=== PATIENT | female | born 1980 | race Caucasian/White ===

== ENCOUNTER 2021-06-01 15:14 | Emergency (ER) | payer SELFPAY ==
--- NOTE | 2021-06-01 15:17 | EDM.PDOC ---
ED HPI GENERAL MEDICAL PROBLEM - General Chief Complaint: Headache Stated Complaint: HEADACHE,SEVERE HEAD PAIN Time Seen by Provider: 06/01/21 15:16 Source of Information: Reports: Patient History Limitations: Reports: No Limitations - History of Present Illness INITIAL COMMENTS - FREE TEXT/NARRATIVE: HISTORY AND PHYSICAL: History of present illness: Patient is a 40-year-old female who presents to the emergency room with complaints of increased anxiety. She states for the past 1 month she has dealt with anxiety on a daily basis stating that her scalp will have a tingling s ensation, feelings of palpitations, "fight or flight feeling" and dizziness. She states she started having symptoms while she was in [place], and has been seen by several providers who "tell me I am okay and it is just my anxiety". She has had a head CT and MRI which are normal. She states she was given Atarax 3 times daily as needed, she states she will take a half tab but does not seem to alleviate her discomfort. Approximately a month ago she was given a prescription for Xanax, she states this does help with her symptoms immensely but has ran out of this medication. She is concerned that her withdrawal from alcohol could be related to the symptoms. She is a daily drinker, drinks about 4-6 beers daily, but states her symptoms do not feel improved whether she is drinking or not. She is not displaying any withdrawal symptoms. Patient states she does feel like she has a sinus infection as well as she has a lot of fullness in her frontal scalp and pain when she bends her head down. Patient denies any fever, chills, change in vision, syncope or near syncope. Denies any chest pain, back pain, shortness of breath or cough. Denies any abdominal pain, nausea, vomiting, diarrhea, constipation or dysuria. Has not noted any blood in urine or stool. Patient has been eating and drinking appropriately. Review of systems: As per history of present illness and below otherwise all systems reviewed and negative. Past medical history: As per history of present illness and as reviewed below otherwise noncontributory. Surgical history: As per history of present illness and as reviewed below otherwise noncontributory. Social history: See social history for further information Family history: As per history of present illness and as reviewed below otherwise noncontributory. Physical exam: General: Well developed and well nourished. Alert and orientated x 3. Nontoxic in appearance and in no acute distress. Vital signs are stable and have been reviewed by me. Nursing notes were reviewed. HEENT: Atraumatic, normocephalic, pupils equal and reactive bilaterally, negative for conjunctival pallor or scleral icterus, mucous membranes moist, bilateral maxillary and frontal sinus pressure to palpation, TMs normal bilaterally, throat clear, neck supple, nontender, trachea midline. No drooling or trismus noted. No meningeal signs. No hot potato voice noted. Lungs: Clear to auscultation bilaterally. No wheezes, rales, or rhonchi. Chest nontender. Normal work of breathing, no accessory muscles used. Heart: S1S2, regular rate and rhythm without overt murmur, gallops, or rubs. No JVD. No peripheral edema Abdomen: Soft, nondistended, nontender. Normoactive bowel sounds. Negative for masses or costovertebral tenderness. C-spine/Back: No pinpoint vertebral tenderness upon palpation. No crepitus, step-offs or obvious deformities. Patient is ambulatory into the emergency room without difficulty or deficit. Able to rock back on heels and walk on toes. Denies any urinary or fecal incontinence. Denies any numbness, tingling or saddle paresthesia. No concerns of serious infection, fracture or cord compression, or cauda equina syndrome. Deep tendon reflexes brisk bilaterally. Skin: Intact, warm, dry. No lesions or rashes noted. Hematologic: No petechiae or purpra. Mucosa appropriate color and normal nail bed color and refill. Extremities: Atraumatic, moves all extremities per self without difficulty or deficits, negative for cords or calf pain. Neurovascular unremarkable. Neuro: Awake, alert, oriented. Cranial nerves II through XII unremarkable. Cerebellum unremarkable. Motor and sensory unremarkable throughout. Exam nonfocal. Psychiatric: Mood and affect are appropriate. Normal thought process. Answering questions appropriately. Notes: *This patient was seen and evaluated during the 2019 SARS-CoV-2 novel coronavirus pandemic period. Community viral transmission is ongoing at time of this encounter and the emergency department is operating under pandemic response procedures. Patient is a 40-year-old female who presents to the emergency room with complaints of anxiety. She states over the past 1 month she has seen several doctors for her symptom of scalp tingling, heart palpitations, and feeling dizzy. She states she has had complete lab work-up, multiple EKGs, head CT, head MRI and has been informed everything has been normal. She has tried multiple prescription medications for anxiety/depression, was told these would take a while to "kick in" and she has not found anything that helps. Most recently she was given a 15 tablet supply of Xanax and Atarax. She states the Xanax did help a lot although she has ran out of this. Her physical exam is unremarkable with the exception of sinusitis. I see no cause for the tingling sensation to the scalp as there is no lesions, facial weakness or droop. This is likely due to her anxiety. She states she has had multiple imaging to her head and declines it at this time stating that today is no different or worse than her previous visits in [place]. Patient's lab work is unremarkable. Vital signs are stable. She does have some relief with the medications given while here. I have talked with the patient about today's findings, in addition to providing specific details for plan of care. Reassessment at the time of disposition demonstrates that the patient is in no acute distress. Due to the longevity of symptoms I would like her to follow-up with neurology, referral has been made. I do feel this is anxiety related, I will give her some Xanax with the intention she follows up with primary care for reevaluation and further management. The patient is stable for discharge, counseling was provided and we discussed in great detail signs and symptoms that would prompt them to return to the Emergency Department. Medication, follow up and supportive care measures were reviewed and discussed. Voices understanding and is agreeable to plan of care. Denies any further quest ions or concerns at this time. Diagnostics: CBC, CMP Therapeutics: IV fluid, Toradol, Ativan Prescription: Augmentin, Xanax Impression: Anxiety Sinus headache secondary to sinusitis Plan: 1. You were evaluated today on an emergent basis. Your exam demonstrates a sinus infection, please take the antibiotic as prescribed. I have given you a limited amount of Xanax as you stated this did help previously. Further refills cannot be done through the emergency room, you will need to establish care with a primary care provider if you are going to be living in the area. I also would like you to see neurology, a referral has been given for Dr. Hernandez. 2. You can alternate Tylenol and ibuprofen as needed for pain and fever management. 3. We encourage you to follow up with your primary care provider and/or recommended specialist in the next few days for re-evaluation and further care/management. 4. If your symptoms should worsen, new symptoms develop or any of the signs and symptoms we discussed should arise please return to the emergency room or call 911 (if needed). Definitive disposition and diagnosis as appropriate pending reevaluation and review of above. - Related Data Allergies Allergy/AdvReac Type Severity Reaction Status Date / Time ciprofloxacin Allergy Dizziness Verified 06/01/21 16:02 flaxseed Allergy Swelling Verified 06/01/21 16:02 Home Meds: Home Meds ALPRAZolam [Xanax] 0.5 mg PO BID PRN #15 tablet 06/01/21 [Rx] Amoxicillin/Clavulanate K [Augmentin 875-125 MG] 1 tab PO BID 10 Days #20 tablet 06/01/21 [Rx] Cetirizine [ZyrTEC] 10 mg PO DAILY 06/01/21 [History] hydrOXYzine HCL [Atarax] 25 mg PO TID PRN 06/01/21 [History] ED ROS GENERAL - Review of Systems Review Of Systems: Comprehensive ROS is negative, except as noted in HPI. - Physical Exam Exam: See Below (See dictation) Course - Vital Signs Last Recorded V/S: Last Vital Signs Temp 97.5 F 06/01/21 15:55 Pulse 82 06/01/21 15:55 Resp 20 06/01/21 15:55 BP 111/77 06/01/21 15:55 Pulse Ox 99 06/01/21 15:55 - Orders/Labs/Meds Orders: Active Orders 24 hr Category Date Time Status Sodium Chloride 0.9% [Normal Saline] 1,000 ml Med 06/01/21 16:01 Active IV STAT Medication Orders Sodium Chloride (Normal Saline) 1,000 mls @ 999 mls/hr IV STAT ONE Stop: 06/01/21 17:01 Last Admin: 06/01/21 16:17 Dose: 999 mls/hr Documented by: [id number] Labs: Laboratory Tests 06/01/21 06/01/21 Range/Units 16:21 16:21 WBC 6.81 (4.0-11.0) K/uL RBC 4.19 L (4.30-5.90) M/uL Hgb 13.3 (12.0-16.0) g/dL Hct 39.3 (36.0-46.0) % MCV 93.8 (80.0-98.0) fL MCH 31.7 (27.0-32.0) pg MCHC 33.8 (31.0-37.0) g/dL RDW Std Deviation 45.7 (28.0-62.0) fl RDW Coeff of Christine 13 (11.0-15.0) % Plt Count 203 (150-400) K/uL MPV 10.20 (7.40-12.00) fL Neut % (Auto) 58.2 (48.0-80.0) % Lymph % (Auto) 31.0 (16.0-40.0) % Perry % (Auto) 7.8 (0.0-15.0) % Eos % (Auto) 2.1 (0.0-7.0) % Baso % (Auto) 0.9 (0.0-1.5) % Neut # (Auto) 4.0 (1.4-5.7) K/uL Lymph # (Auto) 2.1 (0.6-2.4) K/uL Perry # (Auto) 0.5 (0.0-0.8) K/uL Eos # (Auto) 0.1 (0.0-0.7) K/uL Baso # (Auto) 0.1 (0.0-0.1) K/uL Nucleated RBC % 0.0 /100WBC Nucleated RBCs # 0 K/uL Sodium 139 (136-145) mmol/L Potassium 4.2 (3.5-5.1) mmol/L Chloride 104 (98-107) mmol/L Carbon Dioxide 24.5 (21.0-32.0) mmol/L BUN 10 (7.0-18.0) mg/dL Creatinine 0.7 (0.6-1.0) mg/dL Est Cr Clr Drug Dosing 94.10 mL/min Estimated GFR (MDRD) > 60.0 ml/min Glucose 97 (74-106) mg/dL Calcium 8.6 (8.5-10.1) mg/dL Total Bilirubin 0.4 (0.2-1.0) mg/dL AST 20 (15-37) IU/L ALT 31 (14-63) IU/L Alkaline Phosphatase 36 L (46-116) U/L Total Protein 7.5 (6.4-8.2) g/dL Albumin 3.9 (3.4-5.0) g/dL Globulin 3.6 (2.6-4.0) g/dL Albumin/Globulin Ratio 1.1 (0.9-1.6) Meds: Medications Generic Name Dose Route Start Last Admin Trade Name Freq PRN Reason Stop Dose Admin Sodium Chloride 1,000 mls @ 999 mls/hr 06/01/21 16:01 06/01/21 16:17 Normal Saline IV 06/01/21 17:01 999 mls/hr STAT ONE Administration Discontinued Medications Generic Name Dose Route Start Last Admin Trade Name Freq PRN Reason Stop Dose Admin Ketorolac Tromethamine 30 mg 06/01/21 16:01 06/01/21 16:16 Ketorolac 30 Mg/Ml Sdv IVPUSH 06/01/21 16:02 30 mg ONETIME ONE Administration Lorazepam 1 mg 06/01/21 16:01 06/01/21 16:17 Lorazepam 2 Mg/Ml Sdv IVPUSH 06/01/21 16:02 1 mg ONETIME ONE Administration Ondansetron HCl 4 mg 06/01/21 16:01 06/01/21 16:16 Ondansetron 4 Mg/2 Ml Sdv IVPUSH 06/01/21 16:02 4 mg ONETIME ONE Administration Departure - Departure Time of Disposition: 17:00 Disposition: Home, Self-Care 01 Clinical Impression: Anxiety, Sinus headache Sinusitis Qualifiers: Sinusitis location: frontal Chronicity: acute Recurrence: non-recurrent Qualified Code(s): J01.10 - Acute frontal sinusitis, unspecified - Discharge Information Prescriptions: Amoxicillin/Clavulanate K [Augmentin 875-125 MG] 1 tab PO BID 10 Days #20 tablet ALPRAZolam [Xanax] 0.5 mg PO BID PRN #15 tablet PRN Reason: Anxiety Instructions: Migraine Headache, [id number] Referrals: PCP,None [Primary Care Provider] - Forms: ED Department Discharge Additional Instructions: The following information is given to patients seen in the emergency department who are being discharged to home. This information is to outline your options for follow-up care. We provide all patients seen in our emergency department with a follow-up referral. The need for follow-up, as well as the timing and circumstances, are variable depending upon the specifics of your emergency department visit. If you don't have a primary care physician on staff, we will provide you with a referral. We always advise you to contact your personal physician following an emergency department visit to inform them of the circumstance of the visit and for follow-up with them and/or the need for any referrals to a consulting specialist. The emergency department will also refer you to a specialist when appropriate. This referral assures that you have the opportunity for follow-up care with a specialist. All of these measure are taken in an effort to provide you with optimal care, which includes your follow-up. Under all circumstances we always encourage you to contact your private physician who remains a resource for coordinating your care. When calling for follow-up care, please make the office aware that this follow-up is from your recent emergency room visit. If for any reason you are refused follow-up, please contact the [facility] Emergency Department at and asked to speak to the emergency department charge nurse. [facility] [address] [place] [id number] [place] [address] Thank you for choosing the [facility] emergency department in [place] for your medical needs today. It was a pleasure caring for you. Today you were seen in the emergency department for anxiety. 1. You were evaluated today on an emergent basis. Your exam demonstrates a sinus infection, please take the antibiotic as prescribed. I have given you a limited amount of Xanax as you stated this did help previously. Further refills cannot be done through the emergency room, you will need to establish care with a primary care provider if you are going to be living in the area. I also would like you to see neurology, a referral has been given for Dr. Hernandez. 2. You can alternate Tylenol and ibuprofen as needed for pain and fever management. 3. We encourage you to follow up with your primary care provider and/or recommended specialist in the next few days for re-evaluation and further care/management. 4. If your symptoms should worsen, new symptoms develop or any of the signs and symptoms we discussed should arise please return to the emergency room or call 911 (if needed). Sepsis Event Note (ED) - Focused Exam Vital Signs: Vital Signs Temp Pulse Resp BP Pulse Ox 06/01/21 15:55 97.5 F 82 20 111/77 99 - My Orders Last 24 Hours: My Active Orders 06/01/21 16:01 Sodium Chloride 0.9% [Normal Saline] 1,000 ml IV STAT - Assessment/Plan Last 24 Hours: My Active Orders 06/01/21 16:01 Sodium Chloride 0.9% [Normal Saline] 1,000 ml IV STAT
[2021-06-01] MEDS ORDERED: LORazepam 2 MG/ML SDV IVPUSH ONE (16:01)
[2021-06-01] MEDS ORDERED: Ondansetron 4 MG/2 ML SDV IVPUSH ONE (16:01)
[2021-06-01] MEDS ORDERED: Sodium Chloride 0.9% 1,000 ML IV ONE (16:01)
[2021-06-01] MEDS ORDERED: Ketorolac 30 MG/ML SDV IVPUSH ONE (16:01)
[2021-06-01 16:57] LABS: BLOOD UREA NITROGEN,BUN 10 mg/dL (7.0-18.0); CARBON DIOXIDE,CO2 24.5 mmol/L (21.0-32.0); CHLORIDE,CL 104 mmol/L (98-107); GLUCOSE RANDOM 97 mg/dL (74-106); POTASSIUM,K 4.2 mmol/L (3.5-5.1); SODIUM,NA 139 mmol/L (136-145)
== END 2021-06-01 17:13 | disposition home or self-care (01) ==
LOC: MW.ED 15:14
DX: F41.9 Anxiety disorder, unspecified (principal); J01.10 Acute frontal sinusitis, unspecified; Z88.1 Allergy status to other antibiotic agents; Z91.018 Allergy to other foods
CPT/HCPCS: 36415; 80053; 85025; 96374; 96375; 99284; J1885; J2060; J2405; J7030

== ENCOUNTER 2021-07-22 20:16 | Emergency (ER) | payer MEDICAID ==
[2021-07-22] MEDS ORDERED: Metoclopramide 10 MG/2 ML SDV IM ONE (20:53)
[2021-07-22] MEDS ORDERED: Ketorolac 60 MG/2 ML SDV IM ONE (20:53)
--- NOTE | 2021-07-22 20:54 | EDM.PDOC ---
ED HPI GENERAL MEDICAL PROBLEM - General Chief Complaint: Headache Stated Complaint: ONGOING HEADACHE, TOP OF HEAD NUMB, UNSTEADY Time Seen by Provider: 07/22/21 20:26 Source of Information: Reports: Patient History Limitations: Reports: No Limitations - History of Present Illness INITIAL COMMENTS - FREE TEXT/NARRATIVE: HISTORY AND PHYSICAL: History of present illness: The patient is a 40-year-old female who presents to the emergency department with complaints of sinus pressure, anterior scalp numbness. The patient states that she has been having sinus issues, that involve balance, feelings of floating, shakiness inside, for over 5 weeks. The patient has had a head CT and MRI both of which were negative. The patient has no photophobia or phonophobia. The patient was seen in this ER on 06/01/2020 for similar complaints. At that time the patient was diagnosed with anxiety and sinus headache secondary to sinusitis. The patient was prescribed and antibiotics and a refill of her Xanax. The patient was seen at [facility] last week for the same symptoms and was prescribed amoxicillin and another dose of Xanax. The patient states that she does not feel Xanax is helping and not she feels like this is more of a migraine type headache. Patient denies any fever, chills, headache, change in vision, syncope or near syncope. Denies any chest pain, back pain, shortness of breath or cough. Denies any abdominal pain, nausea, vomiting, diarrhea, constipation or dysuria. Has not noted any blood in urine or stool. Patient has been eating and drinking appropriately. Review of systems: As per history of present illness and below otherwise all systems reviewed and negative. Past medical history: As per history of present illness and as reviewed below otherwise noncontributory. Surgical history: As per history of present illness and as reviewed below otherwise noncontributory. Social history: See social history for further information Family history: As per history of present illness and as reviewed below otherwise noncontributory. Physical exam: General: Well developed and well nourished. Alert and orientated x 3. Nontoxic in appearance and in no acute distress. Vital signs are stable and have been reviewed by me. Nursing notes were reviewed. HEENT: Atraumatic, normocephalic, pupils equal and reactive bilaterally, negative for conjunctival pallor or scleral icterus, mucous membranes moist, TMs normal bilaterally, throat clear, neck supple, nontender, trachea midline. No drooling or trismus noted. No meningeal signs. No hot potato voice noted. Lungs: Clear to auscultation bilaterally. No wheezes, rales, or rhonchi. Chest nontender. Normal work of breathing, no accessory muscles used. Heart: S1S2, regular rate and rhythm without overt murmur, gallops, or rubs. No JVD. No peripheral edema Abdomen: Soft, nondistended, nontender. Normoactive bowel sounds. Negative for masses or costovertebral tenderness. Skin: Intact, warm, dry. No lesions or rashes noted. Hematologic: No petechiae or purpra. Mucosa appropriate color and normal nail bed color and refill. Extremities: Atraumatic, moves all extremities per self without difficulty or deficits, negative for cords or calf pain. Neurovascular unremarkable. Neuro: Awake, alert, oriented. Cranial nerves II through XII unremarkable. Cerebellum unremarkable. Motor and sensory unremarkable throughout. Exam nonfocal. Psychiatric: Mood and affect are appropriate. Normal thought process. Answering questions appropriately. Notes: *This patient was seen and evaluated during the 2019 SARS-CoV-2 novel coronavirus pandemic period. Community viral transmission is ongoing at time of this encounter and the emergency department is operating under pandemic response procedures. As stated above the patient is a 40-year-old female who presents to the emergency department with complaints of scalp numbness, balance issues, sinus pressure and shakiness inside. The patient states that she was told she needed to see a neurologist but has not followed up with one. Patient neuro exam was negative for any deficits. There is no facial drooping or slurred speech noticed. Her gait is steady. Upon talking to the patient about her anxiety the patient states that she is just taking the Xanax as needed and does not think that she needs a daily medication. The patient declined head CT or any work-up. I will treat the patient for a migraine with Toradol and Reglan. Patient is unable to receive Benadryl as she is driving. The patient is agreeable with this plan. The patient states that she had some relief from the Toradol and Reglan and wishes to go home. We discussed in detail the need to follow-up with a neurologist and I did place her on a neurologist follow-up appointment with list. I gave the patient a detailed list of symptoms to return to the emergency department. She verbalized understanding. I have talked with the patient about today's findings, in addition to providing specific details for plan of care. Reassessment at the time of disposition demonstrates that the patient is in no acute distress. The patient is stable for discharge, counseling was provided and we discussed in great detail signs and symptoms that would prompt them to return to the Emergency Department. Medication, follow up and supportive care measures were reviewed and discussed. Voices understanding and is agreeable to plan of care. Denies any further questions or concerns at this time Therapeutics: Toradol 60 mg IM Reglan 10 mg IM Impression: Migraine Plan: 1. You were evaluated today on an emergent basis. Your complaints of scalp numbness, balance issues and sinus pressure was evaluated with an examination. You declined any head CT or blood work-up. You were given Toradol 60 mg and Reglan 10 mg IM. You were offered IV fluids and declined. I have put your name on the neurologist follow-up list, so you should receive a phone call for a follow-up appointment. If you have any symptoms such as slurred speech or facial drooping please return to the emergency department as this could be a serious sign. 2. You can alternate Tylenol and ibuprofen as needed for pain and fever management. 3. We encourage you to follow up with your primary care provider and/or recommended specialist in the next few days for re-evaluation and further care/management. 4. If your symptoms should worsen, new symptoms develop or any of the signs and symptoms we discussed should arise please return to the emergency room or call 911 (if needed). Definitive disposition and diagnosis as appropriate pending reevaluation and review of above. headache Pain Score (Numeric/FACES): 5 - Related Data Allergies Allergy/AdvReac Type Severity Reaction Status Date / Time ciprofloxacin Allergy Dizziness Verified 06/01/21 16:02 flaxseed Allergy Swelling Verified 06/01/21 16:02 Home Meds: Home Meds ALPRAZolam [Xanax] 0.5 mg PO BID PRN #15 tablet 06/01/21 [Rx] Cetirizine [ZyrTEC] 10 mg PO DAILY 06/01/21 [History] hydrOXYzine HCL [Atarax] 25 mg PO TID PRN 06/01/21 [History] Past Medical History HEENT History: Reports: Allergic Rhinitis Cardiovascular History: Reports: None Respiratory History: Reports: None Gastrointestinal History: Reports: None Genitourinary History: Reports: None DTP OPERATOR History: Reports: None Musculoskeletal History: Reports: None Neurological History: Reports: None Psychiatric History: Reports: Addiction, Anxiety, Depression Endocrine/Metabolic History: Reports: None Hematologic History: Reports: None Immunologic History: Reports: None Oncologic (Cancer) History: Reports: None Dermatologic History: Reports: None - Infectious Disease History Infectious Disease History: Reports: Chicken Pox, Mononucleosis - Past Surgical History Head Surgeries/Procedures: Reports: None HEENT Surgical History: Reports: None Social & Family History - Family History Family Medical History: No Pertinent Family History - Tobacco Use Tobacco Use Status *Q: Never Tobacco User - Caffeine Use Caffeine Use: Reports: Coffee - Recreational Drug Use Recreational Drug Use: Yes Drug Use in Last 12 Months: Yes Recreational Drug Type: Reports: Other (see below) Other Recreational Drug Type: 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 - Physical Exam Exam: See Below Course - Vital Signs Last Recorded V/S: Last Vital Signs Temp 98 F 07/22/21 20:25 Pulse 71 07/22/21 20:25 Resp 20 07/22/21 20:25 BP 117/69 07/22/21 20:25 Pulse Ox 100 07/22/21 20:25 - Orders/Labs/Meds Meds: Medications Discontinued Medications Generic Name Dose Route Start Last Admin Trade Name Helen PRN Reason Stop Dose Admin Ketorolac Tromethamine 60 mg 07/22/21 20:53 07/22/21 21:10 Ketorolac 60 Mg/2 Ml Sdv IM 07/22/21 20:54 60 mg ONETIME ONE Administration Metoclopramide HCl 10 mg 07/22/21 20:53 07/22/21 21:10 Metoclopramide 10 Mg/2 Ml Sdv IM 07/22/21 20:54 10 mg ONETIME ONE Administration Departure - Departure Time of Disposition: 21:29 Disposition: Home, Self-Care 01 Preliminary Cause of *Q: Cardiac Arrest Condition: Good Clinical Impression: Migraine - Discharge Information *PRESCRIPTION DRUG MONITORING PROGRAM REVIEWED*: Not Applicable *COPY OF PRESCRIPTION DRUG MONITORING REPORT IN PATIENT EVITA: Not Applicable Instructions: Chronic Migraine Headache, [id number] Referrals: PCP,None [Primary Care Provider] - Forms: ED Department Discharge Additional Instructions: The following information is given to patients seen in the emergency department who are being discharged to home. This information is to outline your options for follow-up care. We provide all patients seen in our emergency department with a follow-up referral. The need for follow-up, as well as the timing and circumstances, are variable depending upon the specifics of your emergency department visit. If you don't have a primary care physician on staff, we will provide you with a referral. We always advise you to contact your personal physician following an emergency department visit to inform them of the circumstance of the visit and for follow-up with them and/or the need for any referrals to a consulting specialist. The emergency department will also refer you to a specialist when appropriate. This referral assures that you have the opportunity for follow-up care with a specialist. All of these measure are taken in an effort to provide you with optimal care, which includes your follow-up. Under all circumstances we always encourage you to contact your private physician who remains a resource for coordinating your care. When calling for follow-up care, please make the office aware that this follow-up is from your recent emergency room visit. If for any reason you are refused follow-up, please contact the [facility] Emergency Department at and asked to speak to the emergency department charge nurse. [facility] [address] [place] [address] [id number] [address] Plan: 1. You were evaluated today on an emergent basis. Your complaints of scalp numbness, balance issues and sinus pressure was evaluated with an examination. You declined any head CT or blood work-up. You were given Toradol 60 mg and Reglan 10 mg IM. You were offered IV fluids and declined. I have put your name on the neurologist follow-up list, so you should receive a phone call for a follow-up appointment. If you have any symptoms such as slurred speech or facial drooping please return to the emergency department as this could be a serious sign. 2. You can alternate Tylenol and ibuprofen as needed for pain and fever management. 3. We encourage you to follow up with your primary care provider and/or recommended specialist in the next few days for re-evaluation and further care/management. 4. If your symptoms should worsen, new symptoms develop or any of the signs and symptoms we discussed should arise please return to the emergency room or call 911 (if needed). Sepsis Event Note (ED) - Evaluation Sepsis Screening Result: No Definite Risk
== END 2021-07-22 21:38 | disposition home or self-care (01) ==
LOC: MW.ED 20:16
DX: G43.909 Migraine, unspecified, not intractable, without status migrainosus (principal); Z88.1 Allergy status to other antibiotic agents; Z91.018 Allergy to other foods
CPT/HCPCS: 96372; 99283; J1885; J2765

== ENCOUNTER 2021-07-24 17:37 | Emergency (ER) | payer MEDICAID ==
[2021-07-24] MEDS ORDERED: Sodium Chloride 0.9% 10 ML Syringe FLUSH PRN (19:39)
[2021-07-24] MEDS ORDERED: Sodium Chloride 0.9% 2.5 ML Syringe FLUSH PRN (19:39)
[2021-07-24] MEDS ORDERED: Sodium Chloride 0.9% 1,000 ML IV ONE ×2 (19:40→19:41)
[2021-07-24] MEDS ORDERED: Metoclopramide 10 MG/2 ML SDV IVPUSH ONE (19:41)
[2021-07-24] MEDS ORDERED: Ketorolac 30 MG/ML SDV IVPUSH ONE (19:41)
[2021-07-24] MEDS ORDERED: Ondansetron 4 MG/2 ML SDV IVPUSH ONE (19:41)
[2021-07-24] MEDS ORDERED: diphenhydrAMINE 50 MG/ML SDV IVPUSH ONE (19:42)
--- NOTE | 2021-07-24 19:43 | EDM.PDOC ---
ED HPI GENERAL MEDICAL PROBLEM - General Chief Complaint: Headache Stated Complaint: LIGHT HEADED, VOMITING Time Seen by Provider: 07/24/21 19:30 Source of Information: Reports: Patient History Limitations: Reports: No Limitations - History of Present Illness INITIAL COMMENTS - FREE TEXT/NARRATIVE: HISTORY AND PHYSICAL: History of present illness: Patient is a 40-year-old female who presents to the emergency department with complaints of chest pain, chest tightness, vomiting at 2 PM this afternoon, shaky inside, headache, and freezing since 07/22/2021. The patient was in the emergency room on 07/22/2021 for the same issues plus sinus issues and scalp numbness. At that time the patient would only allow Reglan and Toradol to be administered. The patient states that she did take her Xanax because she understands that she has having anxiety but vomited up at 2 PM this afternoon. The patient states that she has a ride and would like to be treated fully. The patient is willing to undergo test. Patient denies any change in vision, syncope or near syncope. Denies any back pain, shortness of breath or cough. Denies any abdominal pain, diarrhea, constipation or dysuria. Has not noted any blood in urine or stool. Review of systems: As per history of present illness and below otherwise all systems reviewed and negative. Past medical history: As per history of present illness and as reviewed below otherwise noncontributory. Surgical history: As per history of present illness and as reviewed below otherwise noncontributory. Social history: See social history for further information Family history: As per history of present illness and as reviewed below otherwise noncontributory. Physical exam: General: Well developed and well nourished. Alert and orientated x 3. Nontoxic in appearance and in no acute distress. Vital signs are stable and have been reviewed by me. Nursing notes were reviewed. HEENT: Atraumatic, normocephalic, pupils equal and reactive bilaterally, negative for conjunctival pallor or scleral icterus, mucous membranes moist, TMs normal bilaterally, throat clear, neck supple, nontender, trachea midline. No drooling or trismus noted. No meningeal signs. No hot potato voice noted. Lungs: Clear to auscultation bilaterally. No wheezes, rales, or rhonchi. Chest nontender. Normal work of breathing, no accessory muscles used. Heart: S1S2, regular rate and rhythm without overt murmur, gallops, or rubs. No JVD. No peripheral edema Abdomen: Soft, nondistended, nontender. Normoactive bowel sounds. Negative for masses or costovertebral tenderness. Skin: Intact, warm, dry. No lesions or rashes noted. Hematologic: No petechiae or purpra. Mucosa appropriate color and normal nail bed color and refill. Extremities: Atraumatic, moves all extremities per self without difficulty or deficits, negative for cords or calf pain. Neurovascular unremarkable. Neuro: Awake, alert, oriented. Cranial nerves II through XII unremarkable. Cer ebellum unremarkable. Motor and sensory unremarkable throughout. Exam nonfocal. Psychiatric: Mood and affect are appropriate. Normal thought process. Answering questions appropriately. Notes: *This patient was seen and evaluated during the 2019 SARS-CoV-2 novel coronavirus pandemic period. Community viral transmission is ongoing at time of this encounter and the emergency department is operating under pandemic response procedures. As stated above the patient is a 40-year-old female who presents to the emergency department chest pain, chest tightness, vomiting at 2 PM this afternoon, shaky inside, headache, and freezing since 07/22/2021. The patient was in the emergency room on 07/22/2021 for the same issues plus sinus issues and scalp numbness. At that time the patient would only allow Reglan and Toradol to be administered. I saw the patient on 07/22/2021 and she refused any work-up except for treatment for her headache. Today the patient is allowing a work-up and treatment for her headache. I will order blood work, coronavirus, head CT, and Toradol, Benadryl, Reglan for her headache. Plus IV fluids. The patient is agreeable with this plan. Chest x-ray Impression: No acute cardiopulmonary process. CT head IMPRESSION:1. No CT evidence of acute cortical infarct. No acute intracranial hemorrhage. No other acute intracranial findings. The patient states that she is feeling better. The patient CBC is remarkable for an increase in her white blood cell count. The patient's CMP is unremarkable. The patient's Covid is negative. The patient states that she has not felt this good in days and is ready to be discharged. I have talked with the patient about today's findings, in addition to providing specific details for plan of care. Reassessment at the time of disposition demonstrates that the patient is in no acute distress. The patient is stable for discharge, counseling was provided and we discussed in great detail signs and symptoms that would prompt them to return to the Emergency Department. Medication, follow up and supportive care measures were reviewed and discussed. Voices understanding and is agreeable to plan of care. Denies any further questions or concerns at this time. Diagnostics: CBC, CMP, Mg urinalysis, EKG, head CT Therapeutics: IV fluids, Toradol, Zofran, Reglan Impression: Migraine Plan: 1. You were evaluated today on an emergent basis. Your complaints were addressed with blood work which was normal and EKG which was normal. A urinalysis was negative for urinary tract infection. Your chest x-ray was negative for any infection. Your head CT showed mild right maxillary sinus mucosal thickening which is consistent with your chronic sinusitis. Your white blood cell count was mildly elevated indicating you could have a viral infection somewhere. I will call you with your Covid results. 2. You can alternate Tylenol and ibuprofen as needed for pain and fever management. 3. We encourage you to follow up with your primary care provider and/or recommended specialist in the next few days for re-evaluation and further care/management. 4. If your symptoms should worsen, new symptoms develop or any of the signs and symptoms we discussed should arise please return to the emergency room or call 911 (if needed). Definitive disposition and diagnosis as appropriate pending reevaluation and review of above. Bilateral Head Pain Score (Numeric/FACES): 6 - Related Data Allergies Allergy/AdvReac Type Severity Reaction Status Date / Time ciprofloxacin Allergy Dizziness Verified 06/01/21 16:02 flaxseed Allergy Swelling Verified 06/01/21 16:02 Home Meds: Home Meds ALPRAZolam [Xanax] 0.5 mg PO BID PRN #15 tablet 06/01/21 [Rx] Cetirizine [ZyrTEC] 10 mg PO DAILY 06/01/21 [History] hydrOXYzine HCL [Atarax] 25 mg PO TID PRN 06/01/21 [History] Past Medical History HEENT History: Reports: Allergic Rhinitis Cardiovascular History: Reports: None Respiratory History: Reports: None Gastrointestinal History: Reports: None Genitourinary History: Reports: None [employer] History: Reports: None Musculoskeletal History: Reports: None Neurological History: Reports: None Psychiatric History: Reports: Addiction, Anxiety, Depression Endocrine/Metabolic History: Reports: None Hematologic History: Reports: None Immunologic History: Reports: None Oncologic (Cancer) History: Reports: None Dermatologic History: Reports: None - Infectious Disease History Infectious Disease History: Reports: Chicken Pox, Mononucleosis - Past Surgical History Head Surgeries/Procedures: Reports: None HEENT Surgical History: Reports: None Social & Family History - Family History Family Medical History: No Pertinent Family History - Tobacco Use Tobacco Use Status *Q: Never Tobacco User - Caffeine Use Caffeine Use: Reports: Coffee - Recreational Drug Use Recreational Drug Use: No ED ROS GENERAL - Review of Systems Review Of Systems: Comprehensive ROS is negative, except as noted in HPI. - Physical Exam Exam: See Below (See dictation) Course - Vital Signs Last Recorded V/S: Last Vital Signs Temp 98.2 F 07/24/21 18:00 Pulse 72 07/24/21 19:03 Resp 18 07/24/21 19:03 BP 116/86 07/24/21 19:03 Pulse Ox 96 07/24/21 19:03 - Orders/Labs/Meds Orders: Active Orders 24 hr Category Date Time Status Saline Lock Insert [OM.PC] Stat Oth 07/24/21 19:39 Ordered Labs: Laboratory Tests 07/24/21 07/24/21 07/24/21 Range/Units 20:00 20:00 20:00 WBC 14.73 H (4.0-11.0) K/uL RBC 4.18 L (4.30-5.90) M/uL Hgb 13.0 (12.0-16.0) g/dL Hct 38.2 (36.0-46.0) % MCV 91.4 (80.0-98.0) fL MCH 31.1 (27.0-32.0) pg MCHC 34.0 (31.0-37.0) g/dL RDW Std Deviation 42.6 (28.0-62.0) fl RDW Coeff of Christine 13 (11.0-15.0) % Plt Count 247 (150-400) K/uL MPV 10.60 (7.40-12.00) fL Neut % (Auto) 87.1 H (48.0-80.0) % Lymph % (Auto) 10.1 L (16.0-40.0) % Dare % (Auto) 2.4 (0.0-15.0) % Eos % (Auto) 0.1 (0.0-7.0) % Baso % (Auto) 0.3 (0.0-1.5) % Neut # (Auto) 12.8 H (1.4-5.7) K/uL Lymph # (Auto) 1.5 (0.6-2.4) K/uL Dare # (Auto) 0.4 (0.0-0.8) K/uL Eos # (Auto) 0.0 (0.0-0.7) K/uL Baso # (Auto) 0.0 (0.0-0.1) K/uL Nucleated RBC % 0.0 /100WBC Nucleated RBCs # 0 K/uL Sodium 139 (136-145) mmol/L Potassium 4.0 (3.5-5.1) mmol/L Chloride 104 (98-107) mmol/L Carbon Dioxide 24.9 (21.0-32.0) mmol/L BUN 13 (7.0-18.0) mg/dL Creatinine 0.7 (0.6-1.0) mg/dL Est Cr Clr Drug Dosing 94.10 mL/min Estimated GFR (MDRD) > 60.0 ml/min Glucose 84 (74-106) mg/dL Calcium 9.0 (8.5-10.1) mg/dL Magnesium 1.9 (1.8-2.4) mg/dL Total Bilirubin 0.4 (0.2-1.0) mg/dL AST 34 (15-37) IU/L ALT 69 H (14-63) IU/L Alkaline Phosphatase 43 L (46-116) U/L Total Protein 7.8 (6.4-8.2) g/dL Albumin 4.3 (3.4-5.0) g/dL Globulin 3.5 (2.6-4.0) g/dL Albumin/Globulin Ratio 1.2 (0.9-1.6) Urine Color Urine Appearance Urine pH (5.0-8.0) Ur Specific [place] (1.001-1.035) Urine Protein (NEGATIVE) mg/dL Urine Glucose (UA) (NEGATIVE) mg/dL Urine Ketones (NEGATIVE) mg/dL Urine Occult Blood (NEGATIVE) Urine Nitrite (NEGATIVE) Urine Bilirubin (NEGATIVE) Urine Urobilinogen (<2.0) EU/dL Ur Leukocyte Esterase (NEGATIVE) SARS-CoV-2 RNA (LETICIA) NEGATIVE (NEGATIVE) 07/24/21 Range/Units 20:10 WBC (4.0-11.0) K/uL RBC (4.30-5.90) M/uL Hgb (12.0-16.0) g/dL Hct (36.0-46.0) % MCV (80.0-98.0) fL MCH (27.0-32.0) pg MCHC (31.0-37.0) g/dL RDW Std Deviation (28.0-62.0) fl RDW Coeff of Christine (11.0-15.0) % Plt Count (150-400) K/uL MPV (7.40-12.00) fL Neut % (Auto) (48.0-80.0) % Lymph % (Auto) (16.0-40.0) % Dare % (Auto) (0.0-15.0) % Eos % (Auto) (0.0-7.0) % Baso % (Auto) (0.0-1.5) % Neut # (Auto) (1.4-5.7) K/uL Lymph # (Auto) (0.6-2.4) K/uL Dare # (Auto) (0.0-0.8) K/uL Eos # (Auto) (0.0-0.7) K/uL Baso # (Auto) (0.0-0.1) K/uL Nucleated RBC % /100WBC Nucleated RBCs # K/uL Sodium (136-145) mmol/L Potassium (3.5-5.1) mmol/L Chloride (98-107) mmol/L Carbon Dioxide (21.0-32.0) mmol/L BUN (7.0-18.0) mg/dL Creatinine (0.6-1.0) mg/dL Est Cr Clr Drug Dosing mL/min Estimated GFR (MDRD) ml/min Glucose (74-106) mg/dL Calcium (8.5-10.1) mg/dL Magnesium (1.8-2.4) mg/dL Total Bilirubin (0.2-1.0) mg/dL AST (15-37) IU/L ALT (14-63) IU/L Alkaline Phosphatase (46-116) U/L Total Protein (6.4-8.2) g/dL Albumin (3.4-5.0) g/dL Globulin (2.6-4.0) g/dL Albumin/Globulin Ratio (0.9-1.6) Urine Color YELLOW Urine Appearance CLEAR Urine pH 7.0 (5.0-8.0) Ur Specific [place] 1.020 (1.001-1.035) Urine Protein NEGATIVE (NEGATIVE) mg/dL Urine Glucose (UA) NEGATIVE (NEGATIVE) mg/dL Urine Ketones 15 H (NEGATIVE) mg/dL Urine Occult Blood NEGATIVE (NEGATIVE) Urine Nitrite NEGATIVE (NEGATIVE) Urine Bilirubin NEGATIVE (NEGATIVE) Urine Urobilinogen 0.2 (<2.0) EU/dL Ur Leukocyte Esterase NEGATIVE (NEGATIVE) SARS-CoV-2 RNA (LETICIA) (NEGATIVE) Meds: Medications Discontinued Medications Generic Name Dose Route Start Last Admin Trade Name Freq PRN Reason Stop Dose Admin Diphenhydramine HCl 50 mg 07/24/21 19:42 07/24/21 20:18 Diphenhydramine 50 Mg/Ml Sdv IVPUSH 07/24/21 19:43 50 mg ONETIME ONE Administration Sodium Chloride 1,000 mls @ 999 mls/hr 07/24/21 19:40 07/24/21 20:18 Normal Saline IV 07/24/21 20:40 999 mls/hr .BOLUS ONE Administration Sodium Chloride 1,000 mls @ 999 mls/hr 07/24/21 19:41 07/24/21 21:11 Normal Saline IV 07/24/21 20:41 Not Given .BOLUS ONE Ketorolac Tromethamine 30 mg 07/24/21 19:41 07/24/21 20:18 Ketorolac 30 Mg/Ml Sdv IVPUSH 07/24/21 19:42 30 mg ONETIME ONE Administration Metoclopramide HCl 10 mg 07/24/21 19:41 07/24/21 20:18 Metoclopramide 10 Mg/2 Ml Sdv IVPUSH 07/24/21 19:42 10 mg ONETIME ONE Administration Ondansetron HCl 4 mg 07/24/21 19:41 07/24/21 20:19 Ondansetron 4 Mg/2 Ml Sdv IVPUSH 07/24/21 19:42 4 mg ONETIME ONE Administration Sodium Chloride 10 ml 07/24/21 19:39 07/24/21 20:19 Sodium Chloride 0.9% 10 Ml Syringe FLUSH 10 ml ASDIRECTED PRN Administration Keep Vein Open Sodium Chloride 2.5 ml 07/24/21 19:39 07/24/21 20:19 Sodium Chloride 0.9% 2.5 Ml Syringe FLUSH 2.5 ml ASDIRECTED PRN Administration Keep Vein Open Departure - Departure Time of Disposition: 21:08 Disposition: Home, Self-Care 01 Condition: Good Clinical Impression: Migraine - Discharge Information *PRESCRIPTION DRUG MONITORING PROGRAM REVIEWED*: Not Applicable *COPY OF PRESCRIPTION DRUG MONITORING REPORT IN PATIENT EVITA: Not Applicable Instructions: Chronic Migraine Headache Referrals: PCP,None [Primary Care Provider] - Forms: ED Department Discharge Additional Instructions: The following information is given to patients seen in the emergency department who are being discharged to home. This information is to outline your options for follow-up care. We provide all patients seen in our emergency department with a follow-up referral. The need for follow-up, as well as the timing and circumstances, are variable depending upon the specifics of your emergency department visit. If you don't have a primary care physician on staff, we will provide you with a referral. We always advise you to contact your personal physician following an emergency department visit to inform them of the circumstance of the visit and for follow-up with them and/or the need for any referrals to a consulting specialist. The emergency department will also refer you to a specialist when appropriate. This referral assures that you have the opportunity for follow-up care with a specialist. All of these measure are taken in an effort to provide you with optimal care, which includes your follow-up. Under all circumstances we always encourage you to contact your private physician who remains a resource for coordinating your care. When calling for follow-up care, please make the office aware that this follow-up is from your recent emergency room visit. If for any reason you are refused follow-up, please contact the [facility] Emergency Department at and asked to speak to the emergency department charge nurse. [facility] [address] [place] [address] [facility] [address] [place] [address] Plan: 1. You were evaluated today on an emergent basis. Your complaints were addressed with blood work which was normal and EKG which was normal. A urinalysis was negative for urinary tract infection. Your chest x-ray was negative for any infection. Your head CT showed mild right maxillary sinus mucosal thickening which is consistent with your chronic sinusitis. Your white blood cell count was mildly elevated indicating you could have a viral infection somewhere. I will call you with your Covid results. 2. You can alternate Tylenol and ibuprofen as needed for pain and fever management. 3. We encourage you to follow up with your primary care provider and/or recommended specialist in the next few days for re-evaluation and further care/management. 4. If your symptoms should worsen, new symptoms develop or any of the signs and symptoms we discussed should arise please return to the emergency room or call 911 (if needed). Sepsis Event Note (ED) - Focused Exam Vital Signs: Vital Signs Temp Pulse Resp BP Pulse Ox 07/24/21 19:03 72 18 116/86 96 07/24/21 18:00 98.2 F 72 18 129/70 99 - My Orders Last 24 Hours: My Active Orders 07/24/21 19:39 Saline Lock Insert [OM.PC] Stat - Assessment/Plan Last 24 Hours: My Active Orders 07/24/21 19:39 Saline Lock Insert [OM.PC] Stat
--- NOTE | 2021-07-24 20:45 | PCM.EKG ---
#1 Interpretation EKG Interpretation Comments: EKG done at 07/24/2021 at 839 hours shows a sinus rhythm with heart rate of 72 TX 152 and axis of 69. QT duration 463. QRS duration is 113 which is borderline intraventricular conduction delay. ST and T are normal. Impression borderline intraventricular conduction delay otherwise normal.
[2021-07-24 20:52] LABS: BLOOD UREA NITROGEN,BUN 13 mg/dL (7.0-18.0); CARBON DIOXIDE,CO2 24.9 mmol/L (21.0-32.0); CHLORIDE,CL 104 mmol/L (98-107); GLUCOSE RANDOM 84 mg/dL (74-106); SODIUM,NA 139 mmol/L (136-145)
--- NOTE | 2021-07-24 21:03 | CR ---
Indication: Chest pain and tightness. Technique: AP portable view of the chest. Comparison: None Findings: The heart is normal in size. The lungs are clear. No infiltrate, pleural effusion, or pneumothorax is identified. Impression: No acute cardiopulmonary process Dictated by Edilma Awad MD @ 07/24/2021 9:01:44 PM (Electronically Signed)
--- NOTE | 2021-07-24 21:04 | CT ---
INDICATION: Headaches. TECHNIQUE: CT of the head without contrast. Coronal and sagittal reformats are included. COMPARISON: None. FINDINGS: No CT evidence of acute cortical infarct. No loss of gross white matter differentiation. No hyperdense vessels to suggest intracranial thrombus. No acute intracranial hemorrhage. No mass effect or midline shift. No hydrocephalus or extra-axial collections. White matter is within normal limits for age. No acute osseous abnormalities. Mild right maxillary sinus mucosal thickening. Tiny mucous retention cyst left maxillary sinus. Paranasal sinuses otherwise clear. Mastoid air cells clear. Normal soft tissues. IMPRESSION: IMPRESSION:1. No CT evidence of acute cortical infarct. No acute intracranial hemorrhage. No other acute intracranial findings. Please note that all CT scans at this facility use dose modulation, iterative reconstruction, and/or weight-based dosing when appropriate to reduce radiation dose to as low as reasonably achievable. Dictated by Fred Duff MD @ 07/24/2021 9:01:51 PM (Electronically Signed)
== END 2021-07-24 21:17 | disposition home or self-care (01) ==
LOC: MW.ED 17:37
DX: G43.909 Migraine, unspecified, not intractable, without status migrainosus (principal); Z88.1 Allergy status to other antibiotic agents; Z91.018 Allergy to other foods; Z20.822 Contact with and (suspected) exposure to COVID-19
CPT/HCPCS: 36415; 70450; 71045; 80053; 81003; 83735; 85025; 87635; 93005; 96374; 96375; 99285; J1200; J1885; J2405; J2765; J7030; U0002